=== PATIENT | female | born 1985 | race Two or more races ===

== ENCOUNTER 2021-02-23 12:23 | Emergency (ER) | payer SELFPAY ==
[~2021-02-23] VITALS: Ht 152.4 cm; Wt 59.0 kg
[2021-02-23 12:23] VITALS: BP 108/54
[2021-02-23] MEDS ORDERED: ASPirin 81 mg TAB PO ONE (12:30)
== END 2021-02-23 13:21 | disposition left against medical advice (07) ==
LOC: ER 12:23
DX: R07.89 Other chest pain (principal)

== ENCOUNTER 2021-10-08 22:07 | Emergency (ER) | payer MEDICAID, OTHER ==
[~2021-10-08] VITALS: Ht 154.9 cm; Wt 59.0 kg
[2021-10-08 22:13] VITALS: BP 135/81
== END 2021-10-09 01:00 | disposition left against medical advice (07) ==
LOC: ER 22:07
DX: M25.532 Pain in left wrist (principal); Z53.21 Procedure and treatment not carried out due to patient leaving prior to being seen by health care provider